=== PATIENT | male | born 1955 ===

== ENCOUNTER 2025-05-08 04:09 | Outpatient (CLI) | payer MEDICARE, SELFPAY | END 2025-05-08 04:10 | disposition home or self-care (01) | LOC: SLEEP 04:14 | PROVIDERS: PCP Physician Assistant; Referring Provider Physician Assistant; Visit Provider Internal Medicine Pulmonary Disease | DX: G47.33 Obstructive sleep apnea (adult) (pediatric) (principal); G47.36 Sleep related hypoventilation in conditions classified elsewhere; G47.61 Periodic limb movement disorder | CPT/HCPCS: 95810 ==